=== PATIENT | male | born 1935 | race Two or more races ===

== ENCOUNTER 2019-10-17 14:17 | Inpatient (IN) | payer MEDICARE, OTHER ==
[~2019-10-17] VITALS: Ht 172.7 cm; Wt 74.9 kg
[2019-10-17] MEDS ORDERED: PLEASE ENTER ALLERGIES MC SCH (15:00)
[2019-10-17] MEDS ORDERED: SODIUM CHLORIDE FLUSH 10ML SYR IVF ONE (15:00)
[2019-10-17] MEDS ORDERED: MORPHINE SULFATE 4 MG/ML, 1ML IVPush PRN (15:00)
[2019-10-17 15:01] LABS: BASOPHILS # (AUTO) 0.02 x10^3/uL (0-0.1); BASOPHILS % (AUTO) 0 % (0-1); EOSINOPHILS # (AUTO) 0.05 x10^3/uL (0-0.4); EOSINOPHILS % (AUTO) 1 % (1-7); LYMPHOCYTES # (AUTO) 1.44 x10^3/uL (1-3.4); LYMPHOCYTES % (AUTO) 19 % (22-44); MD NO; MEAN CORPUSCULAR HEMOGLOBIN 33.7 pg (27.5-34.5); MEAN CORPUSCULAR HGB CONC 32.7 g/dL (33.2-36.2); MEAN CORPUSCULAR VOLUME 103.1 fL (81-97); MEAN PLATELET VOLUME 8.2 fL (7.4-10.4); MONOCYTES # (AUTO) 0.44 x10^3/uL (0.2-0.8); MONOCYTES % (AUTO) 6 % (2-9); NEUTROPHILS # (AUTO) 5.51 x10^3/uL (1.8-6.8); NEUTROPHILS % (AUTO) 74 % (42-75); PLATELET COUNT 161 x10^3/uL (130-400); RED BLOOD COUNT 3.95 x10^6/uL (4.38-5.82); RED CELL DISTRIBUTION WIDTH 14.1 % (9.4-14.8)
[2019-10-17 15:11] LABS: ALANINE AMINOTRANSFERASE 26 U/L (12-78); ALBUMIN 3.6 g/dL (3.4-5.0); ANION GAP 4 mmol/L (5-15); CALCIUM 8.6 mg/dL (8.5-10.1); CHLORIDE 105 mmol/L (98-107); CREATININE 0.91 mg/dL (0.7-1.3)
[2019-10-17 15:14] LABS: ALKALINE PHOSPHATASE 84 U/L (45-117); BILIRUBIN,TOTAL 0.6 mg/dL (0.2-1.0); TOTAL PROTEIN 6.4 g/dL (6.4-8.2)
--- NOTE | 2019-10-17 15:15 | NUR ---
PACE MAKER BEING INTERIGATED.
[2019-10-17] MEDS ORDERED: MORPHINE SULFATE 4 MG/ML, 1ML ONE (15:26)
[2019-10-17] MEDS ORDERED: LIDOCAINE-MPF 1%, 5ML ONE (15:38)
[2019-10-17] MEDS ORDERED: LIDOCAINE-MPF 2% ,5ML ONE (15:43)
--- NOTE | 2019-10-17 17:01 | NUR ---
THROUGHPUT RN: SPOKE W/ DANA FROM [facility] WHO DECLINED TRANSFER. SPOKE W/ JAMEEL FROM [facility] WHO DECLINED TRANSFER. PSN FAXED ro [phone]. CONFIRMATION RECEIVED.
[2019-10-17] MEDS: SODIUM CHLORIDE 0.9% 1,000 ML IV SCH (17:32)
[2019-10-17] MEDS ORDERED: LABETALOL 5MG/ML, 20ML IVPush PRN (18:00)
[2019-10-17] MEDS ORDERED: LOSA25TA25 PO (18:04)
[2019-10-17] MEDS ORDERED: VIT500LI PO (18:04)
[2019-10-17] MEDS ORDERED: TAMS-11 PO (18:04)
[2019-10-17] MEDS ORDERED: APIX5TAB4 PO (18:04)
[2019-10-17] MEDS ORDERED: HYDR-3237 PO (18:04)
[2019-10-17] MEDS ORDERED: TEMA30CA PO (18:04)
[2019-10-17] MEDS ORDERED: DORZ10DR27 IO (18:04)
[2019-10-17] MEDS ORDERED: SIMV40TA3 PO (18:04)
[2019-10-17] MEDS ORDERED: METO-282 PO (18:06)
--- NOTE | 2019-10-17 18:27 | NUR ---
PT EATING DINNER, NO COMPLAINTS AT THIS TIME.
[2019-10-17] MEDS ORDERED: SODIUM CHLORIDE 0.9% 1,000 ML IV SCH (18:30)
[2019-10-17 18:33] LABS: FREE T4 (FREE THYROXINE) 1.03 ng/dL (0.76-1.46); TROPONIN I < 0.015 ng/mL (0.000-0.045)
[2019-10-17 21:00] VITALS: BP 158/92
[2019-10-17] MEDS: APIXABAN 5 MG TABLET PO SCH (21:23)
[2019-10-17] MEDS: SIMVASTATIN 40 MG TABLET PO SCH (21:24)
[2019-10-17] MEDS: DORZOLAMIDE OPHTH 2%, 10ML OP SCH (21:24)
[2019-10-17] MEDS: TEMAZEPAM 30 MG CAPSULE PO SCH (21:24)
[2019-10-17] MEDS: HYDROcodone/APAP 5/325 TABLET PO PRN (22:44)
[2019-10-18] VITALS (8 sets, daily range): BP systolic 128–172; BP diastolic 69–96
[2019-10-18 01:08] LABS: TROPONIN I < 0.015 ng/mL (0.000-0.045)
[2019-10-18] MEDS: SODIUM CHLORIDE 0.9% 1,000 ML IV SCH ×3 (01:33→17:32)
[2019-10-18 05:57] LABS: BASOPHILS # (AUTO) 0.02 x10^3/uL (0-0.1); BASOPHILS % (AUTO) 0 % (0-1); EOSINOPHILS # (AUTO) 0.07 x10^3/uL (0-0.4); EOSINOPHILS % (AUTO) 1 % (1-7); LYMPHOCYTES % (AUTO) 22 % (22-44); MD NO; MEAN CORPUSCULAR HEMOGLOBIN 33.3 pg (27.5-34.5); MEAN PLATELET VOLUME 8.6 fL (7.4-10.4); MONOCYTES # (AUTO) 0.77 x10^3/uL (0.2-0.8); MONOCYTES % (AUTO) 9 % (2-9); NEUTROPHILS # (AUTO) 5.52 x10^3/uL (1.8-6.8); NEUTROPHILS % (AUTO) 68 % (42-75); PLATELET COUNT 143 x10^3/uL (130-400); RED CELL DISTRIBUTION WIDTH 14.1 % (9.4-14.8)
[2019-10-18 06:09] LABS: ALBUMIN 3.3 g/dL (3.4-5.0); ANION GAP 7 mmol/L (5-15); CALCIUM 8.7 mg/dL (8.5-10.1); CHLORIDE 108 mmol/L (98-107)
[2019-10-18 06:23] LABS: ALANINE AMINOTRANSFERASE 24 U/L (12-78); ALKALINE PHOSPHATASE 86 U/L (45-117); BILIRUBIN,TOTAL 0.6 mg/dL (0.2-1.0); CREATININE 0.94 mg/dL (0.7-1.3); TOTAL PROTEIN 6.1 g/dL (6.4-8.2)
[2019-10-18 08:52] LABS: INTERNATIONAL NORMALIZED RATIO 1.12 (0.93-1.1); PROTHROMBIN TIME 11.7 Seconds (9.6-11.5)
[2019-10-18] MEDS: DORZOLAMIDE OPHTH 2%, 10ML OP SCH ×2 (09:00→20:40)
[2019-10-18] MEDS ORDERED: LOSARTAN 25MG TABLET PO SCH (09:00)
[2019-10-18] MEDS: APIXABAN 5 MG TABLET PO SCH ×2 (09:18→20:40)
[2019-10-18] MEDS: ASCORBIC ACID 500 MG TABLET PO SCH (09:18)
[2019-10-18] MEDS: TAMSULOSIN 0.4 MG CAP.ER.24H PO SCH (09:18)
[2019-10-18] MEDS: METOPROLOL SUCCINATE 25 MG TAB.ER.24H PO SCH (09:19)
[2019-10-18] MEDS: HYDROcodone/APAP 5/325 TABLET PO PRN ×2 (12:55→20:47)
[2019-10-18] MEDS: TEMAZEPAM 30 MG CAPSULE PO SCH (20:39)
[2019-10-18] MEDS: SIMVASTATIN 40 MG TABLET PO SCH (20:40)
[2019-10-19 02:40] VITALS: BP 147/81
[2019-10-19] MEDS: SODIUM CHLORIDE 0.9% 1,000 ML IV SCH ×2 (05:12→13:55)
[2019-10-19 05:51] LABS: BASOPHILS # (AUTO) 0.01 x10^3/uL (0-0.1); BASOPHILS % (AUTO) 0 % (0-1); EOSINOPHILS # (AUTO) 0.02 x10^3/uL (0-0.4); EOSINOPHILS % (AUTO) 0 % (1-7); LYMPHOCYTES # (AUTO) 1.24 x10^3/uL (1-3.4); LYMPHOCYTES % (AUTO) 14 % (22-44); MD NO; MEAN CORPUSCULAR HEMOGLOBIN 33.9 pg (27.5-34.5); MEAN CORPUSCULAR HGB CONC 33.8 g/dL (33.2-36.2); MEAN CORPUSCULAR VOLUME 100.2 fL (81-97); MEAN PLATELET VOLUME 8.4 fL (7.4-10.4); MONOCYTES # (AUTO) 0.86 x10^3/uL (0.2-0.8); MONOCYTES % (AUTO) 9 % (2-9); NEUTROPHILS # (AUTO) 7.04 x10^3/uL (1.8-6.8); NEUTROPHILS % (AUTO) 77 % (42-75); PLATELET COUNT 124 x10^3/uL (130-400); RED BLOOD COUNT 3.91 x10^6/uL (4.38-5.82); RED CELL DISTRIBUTION WIDTH 13.9 % (9.4-14.8)
[2019-10-19 06:02] LABS: CHLORIDE 107 mmol/L (98-107)
[2019-10-19 06:10] LABS: ALANINE AMINOTRANSFERASE 21 U/L (12-78); ALBUMIN 3.1 g/dL (3.4-5.0); ALKALINE PHOSPHATASE 77 U/L (45-117); ANION GAP 7 mmol/L (5-15); BILIRUBIN,TOTAL 0.9 mg/dL (0.2-1.0); CALCIUM 8.4 mg/dL (8.5-10.1)
[2019-10-19 08:06] VITALS: BP 162/81
[2019-10-19 08:07] VITALS: BP_SYST 143; BP_SYST 153; BP_DIAS 74; BP_DIAS 80
[2019-10-19] MEDS: DORZOLAMIDE OPHTH 2%, 10ML OP SCH (09:27)
[2019-10-19] MEDS: METOPROLOL SUCCINATE 25 MG TAB.ER.24H PO SCH (09:28)
[2019-10-19] MEDS: ASCORBIC ACID 500 MG TABLET PO SCH (09:28)
[2019-10-19] MEDS: TAMSULOSIN 0.4 MG CAP.ER.24H PO SCH (09:28)
[2019-10-19] MEDS: APIXABAN 5 MG TABLET PO SCH (09:29)
[2019-10-19] MEDS: HYDROcodone/APAP 5/325 TABLET PO PRN (09:29)
[2019-10-19 13:47] VITALS: BP 146/71
== END 2019-10-19 19:00 | disposition home or self-care (01) | DRG 563 ==
LOC: ED 16:45 → EDIP 17:21 → 5SO 20:32
PROVIDERS: ADMIT Internal Medicine; ATTEND Internal Medicine
PROC: 4B02XSZ Measurement of Cardiac Pacemaker, External Approach (ICD-10-PCS; principal; 2019-10-17)
PROC: 0PSJXZZ Reposition Left Radius, External Approach (ICD-10-PCS; 2019-10-17)
DX: S52.592A Other fractures of lower end of left radius, initial encounter for closed fracture (principal); D68.69 Other thrombophilia; R55 Syncope and collapse; S52.613A Displaced fracture of unspecified ulna styloid process, initial encounter for closed fracture; Z95.0 Presence of cardiac pacemaker; I49.5 Sick sinus syndrome; Z88.8 Allergy status to other drugs, medicaments and biological substances; D50.9 Iron deficiency anemia, unspecified; E78.00 Pure hypercholesterolemia, unspecified; E78.5 Hyperlipidemia, unspecified; F17.210 Nicotine dependence, cigarettes, uncomplicated; I10 Essential (primary) hypertension; I25.10 Atherosclerotic heart disease of native coronary artery without angina pectoris; I25.2 Old myocardial infarction; I48.91 Unspecified atrial fibrillation; I71.4 Abdominal aortic aneurysm, without rupture; N40.0 Benign prostatic hyperplasia without lower urinary tract symptoms; Z66 Do not resuscitate; Z80.3 Family history of malignant neoplasm of breast; Z82.49 Family history of ischemic heart disease and other diseases of the circulatory system; Z86.79 Personal history of other diseases of the circulatory system; W18.39XA Other fall on same level, initial encounter; Y93.89 Activity, other specified; Y92.89 Other specified places as the place of occurrence of the external cause; Y99.8 Other external cause status
CPT/HCPCS: 25605; 36415; 70450; 71045; 80053; 82533; 82607; 83735; 84100; 84439; 84443; 84484; 85025; 85610; 93005; 93306; 96374; 99285; G0378; J2270; J7030